=== PATIENT | female | born 1975 | race American Indian/Alaskan Native ===

== ENCOUNTER 2017-11-19 13:52 | Outpatient (CLI) | payer OTHER ==
[2017-11-19] MEDS ORDERED: PROVENTIL IH ONE (14:56)
--- NOTE | 2017-11-19 16:24 | XRay Report ---
FINAL REPORT EXAM: XR CHEST ROUTINE 2V HISTORY: SHOSRTNESS OF BREATH TECHNIQUE: PA and lateral views of the chest Comparison: None FINDINGS: There is no evidence of focal infiltrate, pneumothorax or pleural fluid collection. The cardiomediastinal silhouette is normal in appearance. The bony structures are notable for dextrocurvature of the thoracic spine. IMPRESSION: 1. No evidence of an acute pulmonary process. 2. Dextrocurvature thoracic spine.
== END 2017-11-19 13:53 | disposition home or self-care (01) ==
LOC: PF 13:52
PROVIDERS: ATTEND Internal Medicine
DX: M41.34 Thoracogenic scoliosis, thoracic region (principal); Z88.6 Allergy status to analgesic agent
CPT/HCPCS: 71046; 94060; 94640; 94726; 94727; 94729

== ENCOUNTER 2018-07-01 14:26 | Outpatient (CLI) | payer OTHER ==
--- NOTE | 2018-07-01 15:22 | XRay Report ---
XRAY CHEST TWO VIEWS: 07/01/18 14:26:00 CLINICAL: Cough. COMPARISON: 11/19/17 and 04/09/14 FINDINGS: Mild right upper lobe volume loss with a new band of subsegmental atelectasis in the right upper lobe.In addition, a new left upper lobe nodular lung opacity measures approximately 1 cm or slightly less than 1 cm. The lungs are otherwise normally expanded and clear.Normal heart and pulmonary vasculature. No pleural effusion. Dextroscoliosis and minimal degenerative change in the spine. IMPRESSION: Right upper lobe subsegmental atelectasis and a new left upper lobe nodular lung opacity. Recommend CT chest without contrast.No pneumonia.
== END 2018-07-01 14:27 | disposition home or self-care (01) ==
LOC: SPVIMAG 14:26
PROVIDERS: ATTEND Family Medicine
DX: J98.11 Atelectasis (principal); M47.9 Spondylosis, unspecified; M41.9 Scoliosis, unspecified
CPT/HCPCS: 71046

== ENCOUNTER 2018-08-12 10:29 | Outpatient (CLI) | payer OTHER ==
--- NOTE | 2018-08-12 13:42 | Cat Scan Report ---
CT CHEST WITHOUT CONTRAST: 08/12/18 10:29:00 CLINICAL: Lung nodule. COMPARISON: 07/01/18 chest x-ray TECHNIQUE: Volumetric acquisition and 1.25 mm scan reconstructions without contrast. FINDINGS: A 4 mm oval noncalcified left upper lobe lung nodule image 91, series 2 correlates with the nodule identified on the chest x-ray. It is adjacent to the fissure and has somewhat indistinct margins. It measures 57 Hounsfield units in density. A 2 mm calcified granuloma of the right upper lobe. No other lung nodule or mass. Mild volume loss of the right upper lobe with subsegmental atelectasis as well as wall thickening of the anterior segment bronchi. No airspace disease or pleural effusion. No mass or lymphadenopathy. Normal heart and aorta. Normal pulmonary vasculature. Normal thyroid, trachea and esophagus. The upper abdomen is unremarkable. The bones and soft tissues are normal. IMPRESSION: 1. A 4 mm noncalcified left upper lobe lung nodule. Recommend CT followup in 6 months. 2. 2 mm calcified granuloma of the right upper lobe. 3. Mild right upper lobe subsegmental atelectasis and postinflammatory bronchial wall thickening of the anterior segment right upper lobe bronchi.
== END 2018-08-12 10:30 | disposition home or self-care (01) ==
LOC: CT 10:29
PROVIDERS: ATTEND Family Medicine
DX: J98.11 Atelectasis (principal); R91.1 Solitary pulmonary nodule
CPT/HCPCS: 71250

== ENCOUNTER 2019-07-01 09:21 | Outpatient (CLI) | payer OTHER ==
--- NOTE | 2019-07-01 09:54 | XRay Report ---
CHEST 2 VIEWS INDICATION / CLINICAL INFORMATION: COUGH R05. COMPARISON: Chest x-ray on 07/01/2018. FINDINGS: SUPPORT DEVICES: None. HEART / MEDIASTINUM: No significant abnormality. LUNGS / PLEURA: There is stable chronic linear scarring in the right upper lobe. There is no acute co nsolidation or pleural effusion. No pneumothorax. ADDITIONAL FINDINGS: No significant additional findings. IMPRESSION: 1. No acute findings. 2. Stable chronic linear scarring in the right upper lobe compared with chest x-ray on 07/01/2018. Signer Name: Anibal Koroma MD Signed: 07/01/2019 9:50 AM Workstation Name: [id number]
== END 2019-07-01 09:22 | disposition home or self-care (01) ==
LOC: SPVWC 09:21
PROVIDERS: ATTEND Family Medicine
DX: R05 Cough (principal)
CPT/HCPCS: 71046